=== PATIENT | male | born 2000 | race Caucasian/White ===

== ENCOUNTER 2020-01-27 23:42 | Emergency (ER) | payer BC, MEDICAID ==
[~2020-01-27] VITALS: Ht 172.7 cm; Wt 59.1 kg
[2020-01-27 23:46] VITALS: BP 120/72
== END 2020-01-28 01:20 | disposition home or self-care (01) ==
LOC: ER 23:43
DX: M79.5 Residual foreign body in soft tissue (principal); M79.641 Pain in right hand; R20.2 Paresthesia of skin
CPT/HCPCS: 99284

== ENCOUNTER 2020-03-03 14:09 | Emergency (ER) | payer BC, MEDICAID ==
[~2020-03-03] VITALS: Ht 175.3 cm; Wt 56.5 kg
[2020-03-03 14:52] LABS: BASOPHILS % (AUTO) 0.6 % (0-1); EOSINOPHILS % (AUTO) 0.5 % (0-6); HEMATOCRIT 46.1 % (42.0-52.0); HEMOGLOBIN 15.8 g/dl (14.0-17.9); LYMPHOCYTES # (AUTO) 1.3 X10'3 (1.1-4.8); LYMPHOCYTES % (AUTO) 26.5 % (21-51); MEAN CORPUSCULAR HEMOGLOBIN 32.5 PG (27.0-31.0); MEAN CORPUSCULAR HGB CONC 34.1 g/dL (33.0-36.5); MEAN CORPUSCULAR VOLUME 95.1 FL (78-98); MEAN PLATELET VOLUME 7.8 FL (7.4-10.4); MONOCYTES # (AUTO) 0.4 X10'3 (0-0.9); MONOCYTES % (AUTO) 7.9 % (2-12); NEUTROPHILS # (AUTO) 3.2 X10'3 (1.8-7.7); NEUTROPHILS % (AUTO) 64.5 % (42-75); PLATELET COUNT 188 X10'3 (140-440); RED BLOOD COUNT 4.85 X10'6 (4.70-6.10); WHITE BLOOD COUNT 4.9 X10'3 (4.5-11.0)
[2020-03-03 15:05] LABS: ALANINE AMINOTRANSFERASE 13 U/L (12-78); ALBUMIN 4.5 G/DL (3.4-5.0); ALBUMIN/GLOBULIN RATIO 1.5 (1.1-1.5); ALKALINE PHOSPHATASE 54 IU/L (46-116); ANION GAP 6 (8-16); ASPARTATE AMINO TRANSFERASE 8 U/L (10-37); BILIRUBIN,TOTAL 0.6 MG/DL (0.1-1.0); BLOOD UREA NITROGEN 12 MG/DL (7-18); BUN/CREATININE RATIO 13.6 (5.4-32.0); CALCIUM 8.8 MG/DL (8.5-10.1); CHLORIDE 105 MMOL/L (99-107); CREATININE 0.88 MG/DL (0.60-1.10); GLUCOSE 96 MG/DL (70-104); POTASSIUM 4.4 MMOL/L (3.5-5.1); SODIUM 141 MMOL/L (135-145); TOTAL CARBON DIOXIDE 30.1 MMOL/L (24-32); TOTAL PROTEIN 7.5 G/DL (6.4-8.2); eGFR > 90 ML/MIN
[2020-03-03 15:13] LABS: ETHANOL < 0.010 GM/DL (0.0-0.010)
--- NOTE | 2020-03-03 15:56 | NUR ---
PT TRANSFERRED FROM ED15 TO OF27 W/ STAFF ESCORT. HE AMBULATED ON HIS OWN.
--- NOTE | 2020-03-03 16:30 | NUR ---
pt ambulated to restroom, urine sample provided and sent to lab
[2020-03-03 16:42] LABS: CLARITY,URINE CLEAR (Clear); COLOR,URINE YELLOW (Yellow); GLUCOSE, URINE NEGATIVE (Neg); KETONES,URINE NEGATIVE (Neg); LEUKOCYTE ESTERASE ,URINE NEGATIVE (Neg); NITRITES, URINE NEGATIVE (Neg); OCCULT BLOOD,URINE NEGATIVE (Neg); PH,URINE 7.5 (4.8-8.0); PROTEIN,URINE NEGATIVE (Neg); UROBILINOGEN,URINE 0.2 E.U/dL (0.2-1.0)
[2020-03-03 16:46] LABS: UA COLLECTION TYPE CLN CATCH MIDSTREAM
[2020-03-03 16:48] LABS: URINE AMPHETAMINE SCREEN NEGATIVE (Neg); URINE BARBITUATE SCREEN NEGATIVE (Neg); URINE BENZODIAZEPINES SCREEN NEGATIVE (Neg); URINE CANNABINOID SCREEN NEGATIVE (Neg); URINE COCAINE SCREEN NEGATIVE (Neg); URINE METHADONE SCREEN NEGATIVE (Neg); URINE OPIATE SCREEN NEGATIVE (Neg); URINE PHENCYCLIDINE SCREEN NEGATIVE (Neg)
--- NOTE | 2020-03-03 17:52 | NUR ---
Pt's mother called to check on pt. Her name is Hollie Carolina and her contact is
--- NOTE | 2020-03-03 19:29 | NUR ---
Patient is with WU Jacques from [facility].
[2020-03-04 05:31] VITALS: BP 91/56
--- NOTE | 2020-03-04 06:30 | NUR ---
PT IS RESTING. NO ISSUES AT THIS TIME
--- NOTE | 2020-03-04 07:30 | NUR ---
PT IS RESTING. NO ISSUES AT THIS TIME
--- NOTE | 2020-03-04 08:00 | NUR ---
PT IS RESTING. NO ISSUES AT THIS TIME
--- NOTE | 2020-03-04 09:00 | NUR ---
PT IS RESTING. NO ISSUES AT THIS TIME
--- NOTE | 2020-03-04 10:00 | NUR ---
PT IS RESTING. NO ISSUES AT THIS TIME
--- NOTE | 2020-03-04 11:00 | NUR ---
PT IS RESTING. NO ISSUES AT THIS TIME
--- NOTE | 2020-03-04 12:00 | NUR ---
PT IS RESTING. NO ISSUES AT THIS TIME
--- NOTE | 2020-03-04 13:00 | NUR ---
PT IS RESTING. NO ISSUES AT THIS TIME
--- NOTE | 2020-03-04 14:00 | NUR ---
PT IS RESTING. NO ISSUES AT THIS TIME
--- NOTE | 2020-03-04 17:01 | NUR ---
PT WAS TRANSFERRED TO [facility] [place]
[2020-03-04] MEDS ORDERED: NO HOME MEDS (17:02)
== END 2020-03-04 17:02 ==
LOC: ER 14:10
DX: R45.851 Suicidal ideations (principal); F12.90 Cannabis use, unspecified, uncomplicated; Z72.89 Other problems related to lifestyle
CPT/HCPCS: 36415; 80053; 80305; 80320; 81003; 84443; 85025; 99285

== ENCOUNTER 2020-03-04 15:30 | Inpatient (IN) | payer BC, MEDICAID ==
[~2020-03-04] VITALS: Ht 170.2 cm; Wt 55.8 kg
[2020-03-04] MEDS ORDERED: mag hydrox/Alum hydrox/simeth 30ml oral suspension PO PRN (16:55)
[2020-03-04] MEDS ORDERED: loperamide 2mg capsule PO PRN (16:55)
[2020-03-04] MEDS ORDERED: traZODone 50mg tablet PO PRN (16:55)
[2020-03-04] MEDS ORDERED: magnesium hydroxide 30ml (MOM) UD suspension PO PRN (16:55)
[2020-03-04] MEDS ORDERED: acetaminophen 325mg tablet PO PRN ×2 (16:55)
[2020-03-04] MEDS ORDERED: LORazepam 1 MG tablet PO PRN (16:55)
[2020-03-04] MEDS ORDERED: NO HOME MEDS (17:02)
--- NOTE | 2020-03-04 17:34 | NUR ---
Admission note: Pt admitted to [place] for Behavioral health on 5150 for DTS at 1703. Pt is actively suicidal with a plan to slit his wrists in the bathtub. Multiple prior aborted suicide attempts by slitting his wrists with a knife. Pts trigger was recently cut off by a friend. Pt stopped taking his antidepressant recently. Negative tox screen. History of depression and deaf, cochlear implant with hearing aide. Addendum: 03/05/20 at 0707 by Carlito Pacheco) WU Correction: No cochlear implants
--- NOTE | 2020-03-04 17:50 | NUR ---
Admission weight and vital signs were as follows: B/P wpe595/63,T= 97.8, R=16 and P=77. Client weight was 55,75 kg.
[2020-03-04 20:20] VITALS: BP 107/54
--- NOTE | 2020-03-05 04:44 | NUR ---
Nursing Progress Note: Legal hold: 515 Client on involuntary status for DTS. Report received from WU Esteban with use of SBAR. Why are they here: Pt admitted to [place] for Behavioral health on 5150 for DTS at 1703. Pt is actively suicidal with a plan to slit his wrists in the bathtub. Multiple prior aborted suicide attempts by slitting his wrists with a knife. Pts trigger was recently cut off by a friend. Pt stopped taking his antidepressant recently. Negative tox screen. History of depression and deaf, cochlear implant with hearing aide. Assessment What has happened this shift: Patient observed watching TV in the group room at the beginning of shift. Patient is deaf; wears hearing aid but requests to telegraphic typewriter mechanic to remove mask when talking to him as he reads lips. Pleasant and cooperative with all care; no medication scheduled this shift. PRN Trazodone provided upon pt request with positive effect. Patient endorses SI, stating, "I always feel suicidal." Did not elaborate a plan this shift. He reported seeing a devil come up from the ground prior to being admitted to the floor but believes to have been a result to smoking marijuana. Denies HI this shift. Patient appears to be having difficulty with own identity as he reported "I always just did what my family did" and since relationship with girlfriend he's lived with her family and either hung out with girlfriend or stayed in his bedroom. Prior to admit she wanted to "break up" and he reports no9t knowing how to deal with it and continued, "she's the only person I've loved." Patient able to understand his mother's voice on the phone and appeared to brighten up when talking with her. Patient participated in HS snack and continued to watch TV prior to bed; does not appear to be having difficulty. S/I, H/I: Passive SI A/VH: Not this shift Sleep: Refer to sleep assessment ADL's: Independent Group attendance: No groups this shift Were meds taken: None scheduled this shift; PRN Trazodone provided Any med S/E: None observed or reported Mental Status Exam Appearance: Neat, clean, appropriate attire. Eye contact: Fair Behavior: Pleasant and cooperative Speech: Deaf impediment, audible Mood: Depressed Affect: Flat Thought process: Linear Thought Content: Dependency on relationships with family and girlfriend Cognition: Intact Insight: Fair Judgment: Poor Interventions PRN's used: Trazodone Therapeutic interventions: Introduced self and established rapport, maintained a safe and therapeutic environment, provided clear and simple instructions, encouraged participation on the unit, provided medication education and maintained Q 15min safety checks. Restraints/seclusion/emergency medication: None Justification of Continued Inpatient Treatment: Patient requires a safe and therapeutic environment and safe coping skills to avoid future admit.
[2020-03-05 08:00] VITALS: BP 119/67
--- NOTE | 2020-03-05 10:00 | NUR ---
Group Therapy: Process Group This Clinicians goals for this process group were as follows: (1) Ask scaling questions about Patients current anxiety, depression, and irritability symptoms as a check-in. (2) Share with Patients psychoeducation about the importance of being able to identify safe, and supportive people who can assist them with their mental and emotional needs. (3) Share psychoeducation on interpersonal boundaries and considerations to assist Patients in developing the ability to discern which groups and individuals will be helpful in assisting them during times of emotional escalation and crisis. (4) Engage Patients in discussion of the topics discussed within the group milieu. Patient identified experiencing the following levels of anxiety, depression, and anger/irritability while present in the group milieu. Anxiety: 09/18 Depression: 11/18 Anger/irritability: 01/18 Patient presented as properly oriented x4 during the process group. Patient was dressed in [facility] scrubs within the milieu. Psychomotor activity was unremarkable. Patient's thought content was clear, and concrete. Patient's thought process was clear, coherent, and linear. This Clinician did not observe Patient responding to any internal stimuli during session. The rate, latency, and tone of Patient's speech was WNL. He spoke with a mild speech impediment, due to Patient's hearing impairment. Patient shared with this Clinician that he was a lip-reader. On a couple different occasions, the first to ask Patient scaling questions about his levels of depression, anxiety, and anger/irritability, the second to ask Patient what he had learned during the process group discussion about interpersonal boundaries, this Clinician removed his mask so that this Patient could read his lips to understand his questions. Patient maintained intermittent eye contact with this Clinician. Patient presented in calm euthymic mood, with congruent affect during the process group. Patient presented as open and cooperative, and was verbally subdued and nonobtrusive within the group milieu. When asked by this Clinician what he had learned during the discussion about developing appropriate interpersonal boundaries in the context of identifying safe and supportive people to whom one could turn to receive appropriate mental health support. Patient shared that it was important for him to feel, "Safe," with the person/people with whom he was sharing sensitive, and personal mental health information. Heraclio Delgado MA, PHOTOGRAPHY PROFESSOR Addendum: 03/06/20 at 0855 by Heraclio Delgado SS Amended: Links added.
--- NOTE | 2020-03-05 12:05 | NUR ---
Malnutrition consult: Pt reports 2-13 lb wt loss with decreased appetite per malnutrition risk screen with RN. No scaled weight hx although pt currently with an appropriate BMI. Pt on a regular diet documented with 100% PO intake first meal and participated in HS snack per RN notes, meeting nutrient needs at this time. Pt with no documented decrease in muscle strength or edema. Pt currently lacks a minimum of two criteria for malnutrition. Will continue to follow. Addendum: 03/05/20 at [address] Amended: Links added.
--- NOTE | 2020-03-05 17:47 | NUR ---
Nursing Progress Note: Legal hold: 5150 Client on involuntary status for DTS. Report received from WU Esteban with use of SBAR. Why are they here: Pt admitted to [place] for Behavioral health on 5150 for DTS at 1703. Pt is actively suicidal with a plan to slit his wrists in the bathtub. Multiple prior aborted suicide attempts by slitting his wrists with a knife. Pts trigger was recently cut off by a friend. Pt stopped taking his antidepressant recently. Negative tox screen. History of depression and deaf; has with hearing aide. Assessment What has happened this shift: Received Pt sleeping w/o distress in bed at beginning of shift. Pt woke for vitals and returned to sleep until breakfast, which he ate in community room with others. Pt tolerated assesments well. Pt needs to see speakers lips as he reads lips moderately well as Pt is deaf. Pt mood is well groomed and appears euthymic at times. Able to socialize well with another Pt about his age. Pts affect bright at times. Pt reports he does not want to take medications. S/I, H/I: Passive SI A/VH: Not this shift Sleep: Refer to sleep assessment ADL's: Independent Group attendance: Yes Were meds taken: No Any med S/E: None observed or reported Mental Status Exam Appearance: Neat, clean, appropriate attire. Eye contact: Fair Behavior: Pleasant and cooperative Speech: Deaf impediment, audible Mood: Euthymic Affect: Flat Thought process: Linear Thought Content: Relationships with family and girlfriend; feeling misunderstood Cognition: Intact Insight: Fair Judgment: Poor Interventions PRN's used: None Therapeutic interventions: Introduced self and established rapport, maintained a safe and therapeutic environment, provided clear and simple instructions, encouraged participation on the unit, provided medication education and maintained Q 15min safety checks. Restraints/seclusion/emergency medication: None Justification of Continued Inpatient Treatment: Requires interruption of current crisis, medication adjustments, and a safe and supportive environment to prevent readmission.
[2020-03-05 19:52] VITALS: BP 101/61
--- NOTE | 2020-03-05 21:48 | NUR ---
Nursing Progress Note: Legal hold: 5150 Client on involuntary status for DTS. Report received from WU Esteban with use of SBAR. Why are they here: Pt admitted to [place] for Behavioral health on 5150 for DTS at 1703. Pt is actively suicidal with a plan to slit his wrists in the bathtub. Multiple prior aborted suicide attempts by slitting his wrists with a knife. Pts trigger was recently cut off by a friend. Pt stopped taking his antidepressant recently. Negative tox screen. History of depression and deaf; has with hearing aide. Assessment What has happened this shift: Pt was in the group room at change of shift spent time working on a puzzle and socializes with peers. Pt reports he is still feeling depressed, but is feeling better than when he came in. Pt denies s/i. Pt states he sometimes has a difficult time falling asleep but declines trazadone for sleep tonight. S/I, H/I: denies A/VH: denies Sleep: see sleep assessment ADL's: Independent Group attendance: Yes Were meds taken: No Any med S/E: None observed or reported Mental Status Exam Appearance: Neat, clean, appropriate attire. Eye contact: Fair Behavior: Pleasant and cooperative Speech: Deaf impediment, audible Mood: Euthymic Affect: Flat Thought process: Linear Thought Content: Relationships with family and girlfriend; feeling misunderstood Cognition: Intact Insight: Fair Judgment: Poor Interventions PRN's used: None Therapeutic interventions: Introduced self and established rapport, maintained a safe and therapeutic environment, provided clear and simple instructions, encouraged participation on the unit, provided medication education and maintained Q 15min safety checks. Restraints/seclusion/emergency medication: None Justification of Continued Inpatient Treatment: Requires interruption of current crisis, medication adjustments, and a safe and supportive environment to prevent readmission.
[2020-03-06 07:48] VITALS: BP 95/55
--- NOTE | 2020-03-06 10:00 | NUR ---
Group Therapy: Process Group This Clinicians goals for this process group were as follows: (1) Ask scaling questions about Patients current anxiety, depression, and irritability symptoms as a check-in. (2) Share psychoeducation about automatic thoughts and cognitive distortions. (3) Share psychoeducation on CBT thought-stopping and, thought-reframing. (4) Discuss strategies for identifying negative, unhelpful, and/or irrational thoughts as quickly as possible to avoid unwanted escalation of mental health symptoms. (5) Process Clients thoughts and reflections on this topic within the group milieu. Patient identified experiencing the following levels of anxiety, depression, and anger/irritability while present in the group milieu. Anxiety: 0/10 Depression: 3/10 Anger/irritability: 0/10 Patient presented as properly oriented x4 during the process group. Patient was dressed in [facility] scrubs within the milieu. Psychomotor activity was unremarkable. Patient quietly worked on putting together a jigsaw puzzle during the process group. Patient's thought content was clear, and concrete. Patient's thought process was clear, coherent, and linear. This Clinician did not observe Patient responding to any internal stimuli during session. The rate, latency, and tone of Client's speech was within normal limits. Patient has a speech impediment due to impaired hearing. Patient sustained regular eye contact with this Clinician. Patient presented in calm euthymic mood, with congruent affect during the process group. Patient presented as open and cooperative. He was verbally subdued and nonobtrusive within the group milieu. Patient remained quiet during the majority of the process group. He occasionally offered comments that appeared to indicate his awareness of how thinking in balanced, helpful and rational ways could reduce the acuity of unwanted mental health symptoms and how those symptoms could be made worse by engaging in cognitive distortions. Heraclio Delgado MA, DAYLIGHT DRILLER Addendum: 03/07/20 at 0818 by Heraclio Delgado Amended: Links added.
--- NOTE | 2020-03-06 14:46 | NUR ---
DISCHARGE PLANNING Raffi's mother, Hollie (ph# [phone]) called and requested a video call with Raffi. Spoke to Raffi who reported he would prefer to talk to his mom tomorrow when he gets home. He gave permission for insurance underwriter sales to call his mom back. Spoke to Hollie and informed her that Raffi will be discharging tomorrow and would prefer to talk to her then. She reported she can pick him up by 6 PM tomorrow after she is off work. Left message for Raffi's therapist, Anna Griffin (ph# [phone]), to confirm date and time of his appointment with her next week. Requested a call back. EDUARDO Cardozo
--- NOTE | 2020-03-06 14:49 | NUR ---
NURSING PROGRESS NOTE Legal hold: 5150 Client on involuntary status for DTS. Report received from WU Miguel with use of SBAR. Why are they here: Pt admitted to [place] for Behavioral health on 5150 for DTS at 1703. Pt is actively suicidal with a plan to slit his wrists in the bathtub. Multiple prior aborted suicide attempts by slitting his wrists with a knife. Pts trigger was recently cut off by a friend. Pt stopped taking his antidepressant recently. Negative tox screen. History of depression and deaf; has with hearing aide. Assessment What has happened this shift: Patient up early on unit, eating well and socializing by doing puzzles with others. Communication via lip reading at 6 foot social distance. Reports feeling "much better" and not having suicidal thoughts but is "afraid I might have them again." States he woke up depressed but then was able to talk to his girlfriend and felt much better. States he and his girlfriend are going to "work it out" and he will be returning to the home again. After attending therapy group stated, "I think I had magical thinking for the last two years, it makes sense to me now." Attends groups and is social with others. S/I, H/I: denies A/VH: denies Sleep: none ADL's: Independent Group attendance: Yes Were meds taken: No Any med S/E: None observed or reported Mental Status Exam Appearance: Neat and clean Eye contact: Fair Behavior: Pleasant and cooperative Speech: Deaf impediment, audible, reads lips Mood: Euthymic Affect: blunted Thought process: Linear Thought Content: discharging and being with girlfriend Cognition: alert Insight: Fair Judgment: fair Interventions PRN's used: None Therapeutic interventions: Introduced self and established rapport, maintained a safe and therapeutic environment, provided clear and simple instructions, encouraged participation on the unit, provided medication education and maintained Q 15min safety checks. Restraints/seclusion/emergency medication: None Justification of Continued Inpatient Treatment: Requires interruption of current crisis, medication adjustments, and a safe and supportive environment to prevent readmission.
--- NOTE | 2020-03-06 14:56 | NUR ---
PSYCHOSOCIAL ASSESSMENT Raffi is a 20 y/o single male with hearing difficulties (has hearing aids and can read lips) who was placed on 5150 for danger to self. He presented to ED with depressed mood,feeling hopeless and helpless, and suicidal ideation with a plan to cut his wrists in the bathtub. He recently broke up with his girlfriend, has difficulty with his job and communicating with others due to mask mandate. He has been diagnosed with depression in the past and has taken an antidepressant, however, did not like the side effects. He is currently not on any medications nor does he want any. He has a therapist, Anna Griffin. He plans on returning to his mother's home and following up with his therapist. Raffi denied any current SI or HI. He reported he has learned new skills from the groups at [facility]. He reported he feels comfortable returning home. EDUARDO Cardozo Addendum: 03/06/20 at 1457 by Vanessa HOOPER Amended: Links added.
[2020-03-06 20:00] VITALS: BP 105/78
--- NOTE | 2020-03-06 22:38 | NUR ---
NURSING PROGRESS NOTE Legal hold: 5150 Client on involuntary status for DTS. Report received from WU Miguel with use of SBAR. Why are they here: Pt admitted to [place] for Behavioral health on 5150 for DTS at 1703. Pt is actively suicidal with a plan to slit his wrists in the bathtub. Multiple prior aborted suicide attempts by slitting his wrists with a knife. Pts trigger was recently cut off by a friend. Pt stopped taking his antidepressant recently. Negative tox screen. History of depression and deaf; has with hearing aide. Assessment What has happened this shift: Pt was in group room working on a puzzle with other patients at change of shift. He states he had a good day today and is feeling good. Pt is hopeful he can go home tomorrow and plans to work on things with his girlfriend. Pt denies s/i, denies a/vh. Pt states he enjoys Jazz music and requested to put Jazz music on the television. Pt spent time listening to jazz music with peers. S/I, H/I: denies A/VH: denies Sleep: none ADL's: Independent Group attendance: socializes with others Were meds taken: No Any med S/E: None observed or reported Mental Status Exam Appearance: Neat and clean Eye contact: Fair Behavior: Pleasant and cooperative Speech: speech impediment r/t deafness, Mood: Euthymic Affect: blunted Thought process: Linear Thought Content: discharging and being with girlfriend Cognition: alert Insight: Fair Judgment: fair Interventions PRN's used: None Therapeutic interventions: Introduced self and established rapport, maintained a safe and therapeutic environment, provided clear and simple instructions, encouraged participation on the unit, provided medication education and maintained Q 15min safety checks. Restraints/seclusion/emergency medication: None Justification of Continued Inpatient Treatment: Requires interruption of current crisis, medication adjustments, and a safe and supportive environment to prevent readmission.
[2020-03-07 08:00] VITALS: BP 106/55
--- NOTE | 2020-03-07 10:37 | NUR ---
NURSING PROGRESS NOTE Legal hold: 5150 Client on involuntary status for DTS. Report received from WU Miguel with use of SBAR. Why are they here: Pt admitted to [place] for Behavioral health on 5150 for DTS at 1703. Pt is actively suicidal with a plan to slit his wrists in the bathtub. Multiple prior aborted suicide attempts by slitting his wrists with a knife. Pts trigger was recently cut off by a friend. Pt stopped taking his antidepressant recently. Negative tox screen. History of depression and deaf; has with hearing aide. Assessment What has happened this shift: Up early and visible on unit. Denies SI or hallucinations. Looking forward to going home. Attending groups and socializing with others. States he is ready to leave and appreciates the help he has received. S/I, H/I: denies A/VH: denies Sleep: none ADL's: Independent Group attendance: Yes Were meds taken: No Any med S/E: None observed or reported Mental Status Exam Appearance: Neat and clean Eye contact: Fair Behavior: Pleasant and cooperative Speech: Deaf impediment, audible, reads lips Mood: "good" Affect: bright Thought process: Linear Thought Content: discharging to home Cognition: alert Insight: Fair Judgment: fair Interventions PRN's used: None Therapeutic interventions: Introduced self and established rapport, maintained a safe and therapeutic environment, provided clear and simple instructions, encouraged participation on the unit, provided medication education and maintained Q 15min safety checks. Restraints/seclusion/emergency medication: None Justification of Continued Inpatient Treatment: Requires interruption of current crisis, medication adjustments, and a safe and supportive environment to prevent readmission.
--- NOTE | 2020-03-07 12:32 | NUR ---
DISCHARGE NOTE The patient was discharged today at 1232. He left with all instructions and belongings. Reports no suicidal thoughts and reports feeling much better and looking forward to going home. he was picked up by his mother. He was escorted to the lobby by SUHA Deluna.
== END 2020-03-07 12:32 | disposition home or self-care (01) | DRG 885 ==
LOC: ADULT MH 15:30
PROVIDERS: ADMIT Psychiatry & Neurology Psychiatry; ATTEND Psychiatry & Neurology Psychiatry
DX: F33.1 Major depressive disorder, recurrent, moderate (principal); R45.851 Suicidal ideations; Z81.8 Family history of other mental and behavioral disorders; Z82.0 Family history of epilepsy and other diseases of the nervous system; Z82.49 Family history of ischemic heart disease and other diseases of the circulatory system; Z79.899 Other long term (current) drug therapy
CPT/HCPCS: 36415; 83036; 87081; 99285